=== PATIENT | male | born 2005 | race Caucasian/White ===

== ENCOUNTER 2025-05-17 10:22 | Emergency (ER) | payer SELFPAY ==
[~2025-05-17] VITALS: Ht 167.6 cm; Wt 75.0 kg
[2025-05-17 10:25] VITALS: O2SAT 97
[2025-05-17 10:30] VITALS: BP 101/60; PULSE 67; RESP 15; TEMP 36.9; O2SAT 99
[2025-05-17 11:38] LABS: *AMPHETAMINES SCREEN URINE NEGATIVE (NEGATIVE)
[2025-05-17 11:39] LABS: *BARBITURATES SCREEN URINE NEGATIVE (NEGATIVE); *BENZODIAZEPINES SCREEN URINE PRESUMPTIVE POSITIVE (NEGATIVE); *COCAINE SCREEN URINE NEGATIVE (NEGATIVE); CANNABINOID URINE SCREEN PRESUMPTIVE POSITIVE (NEGATIVE); ECSTASY MDMA SCREEN URINE NEGATIVE (NEGATIVE); METHADONE URINE SCREEN NEGATIVE (NEGATIVE); OPIATES URINE SCREEN NEGATIVE (NEGATIVE); PHENCYCLIDINE URINE SCREEN NEGATIVE (NEGATIVE)
== END 2025-05-17 11:31 | disposition left against medical advice (07) ==
LOC: ER 10:56
DX: F11.13 Opioid abuse with withdrawal (principal); Z00.00 Encounter for general adult medical examination without abnormal findings; Z79.899 Other long term (current) drug therapy
CPT/HCPCS: 80305; 93005; 99284